=== PATIENT | female | born 1995 | race Caucasian/White ===

== ENCOUNTER 2017-01-15 14:10 | Emergency (ER) | payer BC ==
[~2017-01-15] VITALS: Ht 170.2 cm; Wt 63.0 kg
[2017-01-15] MEDS ORDERED: MORPHINE SULFATE 10 MG/ML CPJ SUBCUT ONE (15:00)
[2017-01-15] MEDS ORDERED: KETOROLAC 60MG/2ML VIAL IM ONE (16:45)
[2017-01-15 17:16] VITALS: BP 117/61
== END 2017-01-15 17:25 | disposition home or self-care (01) ==
LOC: ER 15:12
DX: S39.012A Strain of muscle, fascia and tendon of lower back, initial encounter (principal); V43.52XA Car driver injured in collision with other type car in traffic accident, initial encounter; Y93.89 Activity, other specified; Y92.488 Other paved roadways as the place of occurrence of the external cause
CPT/HCPCS: 81025; 96372; 99283; J1885; J2270